=== PATIENT | male | born 1980 | race Caucasian/White ===

== ENCOUNTER 2018-07-18 08:46 | Outpatient (REF) | payer MEDICAID, SELFPAY ==
[2018-07-18 22:58] LABS: BUN 31 mg/dL (7-18); CREATININE 1.57 mg/dL (0.70-1.30); Calcium 8.9 mg/dL (8.5-10.1); Chloride 103 mmol/L (98-107); Estimated GFR 49.43 (mL/min/1.73m2); Glucose 87 mg/dL (70-100); Potassium 4.5 mmol/L (3.5-5.1); Sodium 140 mmol/L (136-145)
== END 2018-07-18 09:06 ==
LOC: LBN 08:46
PROVIDERS: PCP Registered Nurse; Visit Provider Internal Medicine Cardiovascular Disease
DX: I10 Essential (primary) hypertension (principal)
CPT/HCPCS: 80048

== ENCOUNTER 2018-12-13 16:04 | Outpatient (REF) | payer MEDICAID, SELFPAY ==
[2018-12-13 21:24] LABS: Anion Gap 12.4 mmol/L (3-11); BUN 31 mg/dL (7-18); CO2 25.6 mmol/L (21.0-32.0); CREATININE 1.52 mg/dL (0.70-1.30); Calcium 9.7 mg/dL (8.5-10.1); Chloride 100 mmol/L (98-107); Estimated GFR 51.31 (mL/min/1.73m2); Glucose 93 mg/dL (70-100); Potassium 4.5 mmol/L (3.5-5.1); Sodium 138 mmol/L (136-145)
== END 2018-12-13 16:24 ==
LOC: NCHCN 16:04
PROVIDERS: PCP Registered Nurse; Visit Provider Registered Nurse
DX: I10 Essential (primary) hypertension (principal)
CPT/HCPCS: 80048

== ENCOUNTER 2019-01-15 10:20 | Outpatient (REF) | payer MEDICAID, SELFPAY ==
[2019-01-15 22:25] LABS: Cholesterol 146 mg/dL (50-200); HDL Cholesterol 33 mg/dL (40-60); LDL CHOLESTEROL 90 mg/dL (<100); Triglyceride 155 mg/dL (30-150)
== END 2019-01-15 10:40 ==
LOC: LBN 10:20
PROVIDERS: PCP Registered Nurse; Visit Provider Pediatrics
DX: E78.5 Hyperlipidemia, unspecified (principal)
CPT/HCPCS: 80061; 83721

== ENCOUNTER 2020-02-20 15:28 | Outpatient (REF) | payer MEDICAID, SELFPAY ==
[2020-02-20 20:44] LABS: ALT 42 U/L (16-63); AST 25 U/L (15-37); Albumin 4.9 g/dL (3.4-5.0); Alkaline Phosphatase 102 U/L (46-116); Anion Gap 11.2 mmol/L (3-11); BUN 41 mg/dL (7-18); Bilirubin, Total 0.5 mg/dL (0.2-1.0); CO2 27.8 mmol/L (21.0-32.0); CREATININE 3.02 mg/dL (0.70-1.30); Calcium 9.9 mg/dL (8.5-10.1); Chloride 97 mmol/L (98-107); Estimated GFR 23.11 (mL/min/1.73m2); Glucose 105 mg/dL (74-106); Potassium 4.6 mmol/L (3.5-5.1); Sodium 136 mmol/L (136-145); Total Protein 8.4 g/dL (6.4-8.2)
[2020-02-20 20:50] LABS: Hemoglobin A1C 6.3 % (3.8-5.6)
== END 2020-02-20 15:48 ==
LOC: NCHCN 15:28
PROVIDERS: PCP Registered Nurse; Visit Provider Registered Nurse
DX: R73.03 Prediabetes (principal); I10 Essential (primary) hypertension; E66.01 Morbid (severe) obesity due to excess calories
CPT/HCPCS: 80053; 83036

== ENCOUNTER 2020-07-27 09:39 | Outpatient (REF) | payer MEDICAID, SELFPAY ==
[2020-07-28 00:04] LABS: ALT 42 U/L (16-63); AST 17 U/L (15-37); BUN 26 mg/dL (7-18); CREATININE 1.42 mg/dL (0.70-1.30); Calculated LDL 83 mg/dL (<100); Cholesterol 144 mg/dL (<200); Estimated GFR 54.94 (mL/min/1.73m2); Glucose 102 mg/dL (74-106); HDL Cholesterol 32 mg/dL (40-60); Triglyceride 149 mg/dL (<150)
[2020-07-28 00:16] LABS: Creatine Kinase 172 U/L (39-308); Uric Acid 8.3 mg/dL (3.5-7.2)
== END 2020-07-27 09:59 ==
LOC: LBN 09:39
PROVIDERS: PCP Registered Nurse; Visit Provider Internal Medicine Cardiovascular Disease
DX: E78.5 Hyperlipidemia, unspecified (principal)
CPT/HCPCS: 80061; 82550; 82947; 84520; 82565; 84450; 84460; 84550

== ENCOUNTER 2021-03-10 08:35 | Outpatient (REF) | payer MEDICAID, SELFPAY ==
[2021-03-10 13:55] LABS: BUN 23 mg/dL (7-18); CREATININE 1.2 mg/dL (0.70-1.30)
== END 2021-03-10 08:36 | disposition home or self-care (01) ==
LOC: NCHCN 08:35
PROVIDERS: PCP Registered Nurse; Visit Provider Registered Nurse
DX: R73.03 Prediabetes (principal); I10 Essential (primary) hypertension; N17.9 Acute kidney failure, unspecified
CPT/HCPCS: 84520; 82565

== ENCOUNTER 2021-08-09 12:31 | Outpatient (REF) | payer MEDICAID, SELFPAY ==
[2021-08-09 15:33] LABS: ALT 34 U/L (16-63); AST 15 U/L (15-37); Albumin 4.5 g/dL (3.4-5.0); Alkaline Phosphatase 88 U/L (46-116); Anion Gap 10.4 mmol/L (3-11); BUN 24 mg/dL (7-18); Bilirubin, Total 1.1 mg/dL (0.2-1.0); CO2 27.6 mmol/L (21.0-32.0); CREATININE 1.3 mg/dL (0.70-1.30); Calcium 9.6 mg/dL (8.5-10.1); Calculated LDL 72 mg/dL (<100); Chloride 98 mmol/L (98-107); Cholesterol 135 mg/dL (<200); Glucose 104 mg/dL (74-106); HDL Cholesterol 32 mg/dL (40-60); Potassium 4.9 mmol/L (3.5-5.1); Sodium 136 mmol/L (136-145); Total Protein 7.5 g/dL (6.4-8.2); Triglyceride 155 mg/dL (<150)
[2021-08-09 15:48] LABS: Uric Acid 6.9 mg/dL (3.5-7.2)
== END 2021-08-09 12:32 | disposition home or self-care (01) ==
LOC: LBN 12:31
PROVIDERS: PCP Registered Nurse; Visit Provider Internal Medicine Cardiovascular Disease
DX: E78.5 Hyperlipidemia, unspecified (principal)
CPT/HCPCS: 80053; 80061; 84550

== ENCOUNTER 2022-09-28 15:44 | Outpatient (REF) | payer MEDICAID, SELFPAY ==
[2022-09-28 17:01] LABS: ALT 75 U/L (16-63); AST 35 U/L (15-37); Albumin 4.6 g/dL (3.4-5.0); Alkaline Phosphatase 73 U/L (46-116); Anion Gap 7.6 mmol/L (3-11); BUN 22 mg/dL (7-18); CO2 28.4 mmol/L (21.0-32.0); CREATININE 1.3 mg/dL (0.70-1.30); Calcium 9.7 mg/dL (8.5-10.1); Calculated LDL 75 mg/dL (<100); Chloride 98 mmol/L (98-107); Cholesterol 151 mg/dL (<200); Glucose 87 mg/dL (74-106); HDL Cholesterol 40 mg/dL (40-60); Potassium 4.4 mmol/L (3.5-5.1); Sodium 134 mmol/L (136-145); Total Protein 7.8 g/dL (6.4-8.2); Triglyceride 180 mg/dL (<150)
== END 2022-09-28 15:45 | disposition home or self-care (01) ==
LOC: NCHCN 15:44
PROVIDERS: PCP Registered Nurse; Visit Provider Registered Nurse
DX: E11.9 Type 2 diabetes mellitus without complications (principal); E78.5 Hyperlipidemia, unspecified; I10 Essential (primary) hypertension; E66.8 Other obesity
CPT/HCPCS: 80053; 80061; 83036

== ENCOUNTER 2022-10-06 13:18 | Outpatient (REF) | payer MEDICAID, SELFPAY ==
[2022-10-06 16:29] LABS: COMMENT (LAB VIEW ONLY) 82.43 mg/dL; Microalb ug/mg Crea 5.3 ug/mg Cr
== END 2022-10-06 13:19 | disposition home or self-care (01) ==
LOC: NCHCN 13:18
PROVIDERS: PCP Registered Nurse; Visit Provider Registered Nurse
DX: E11.9 Type 2 diabetes mellitus without complications (principal)
CPT/HCPCS: 82043; 82570

== ENCOUNTER 2023-01-20 21:10 | Outpatient (REF) | payer MEDICAID, SELFPAY ==
[2023-01-20 22:55] LABS: ALT 53 U/L (16-63); AST 29 U/L (15-37); Albumin 4.7 g/dL (3.4-5.0); Alkaline Phosphatase 85 U/L (46-116); Anion Gap 10.8 mmol/L (3-11); BUN 28 mg/dL (7-18); Bilirubin, Total 0.9 mg/dL (0.2-1.0); CO2 26.2 mmol/L (21.0-32.0); CREATININE 1.3 mg/dL (0.70-1.30); Calcium 10.3 mg/dL (8.5-10.1); Chloride 102 mmol/L (98-107); Glucose 96 mg/dL (74-106); Potassium 4.6 mmol/L (3.5-5.1); Sodium 139 mmol/L (136-145); Total Protein 8.4 g/dL (6.4-8.2)
== END 2023-01-20 21:11 | disposition home or self-care (01) ==
LOC: NCHCN 21:10
PROVIDERS: PCP Registered Nurse; Visit Provider Registered Nurse
DX: I10 Essential (primary) hypertension (principal)
CPT/HCPCS: 80053

== ENCOUNTER 2023-12-27 12:20 | Outpatient (REF) | payer SELFPAY ==
[2023-12-27 14:25] LABS: Anion Gap 12.9 mmol/L (3-11); BUN 25 mg/dL (7-18); CO2 26.1 mmol/L (21.0-32.0); CREATININE 1.4 mg/dL (0.70-1.30); Calcium 9.8 mg/dL (8.5-10.1); Chloride 98 mmol/L (98-107); Estimated GFR 63.56 (mL/min/1.73m2); Glucose 99 mg/dL (74-106); Potassium 4.1 mmol/L (3.5-5.1); Sodium 137 mmol/L (136-145)
[2023-12-27 14:33] LABS: Hemoglobin A1C 6.5 % (<5.7)
[2023-12-27 14:49] LABS: COMMENT (LAB VIEW ONLY) 19.68 mg/dL; Microalb ug/mg Crea 10.2 ug/mg Cr
== END 2023-12-27 12:21 | disposition home or self-care (01) ==
LOC: NCHCN 12:20
PROVIDERS: PCP Registered Nurse; Visit Provider Family Medicine
DX: I10 Essential (primary) hypertension (principal); E11.9 Type 2 diabetes mellitus without complications
CPT/HCPCS: 80048; 82043; 82570; 83036

== ENCOUNTER 2025-08-29 16:55 | Outpatient (REF) | payer BC, MEDICAID, SELFPAY ==
[2025-08-29 16:09] LABS: Anion Gap 10.1 mmol/L (3-11); BUN 23 mg/dL (7-18); CO2 28.9 mmol/L (21.0-32.0); Calcium 10.0 mg/dL (8.5-10.1); Chloride 99 mmol/L (98-107); Glucose 94 mg/dL (74-106); Potassium 4.8 mmol/L (3.5-5.1); Sodium 138 mmol/L (136-145)
== END 2025-08-29 16:56 | disposition home or self-care (01) ==
LOC: NCHCN 16:55
PROVIDERS: PCP Registered Nurse; Visit Provider Family Medicine
DX: I10 Essential (primary) hypertension (principal)
CPT/HCPCS: 80048